=== PATIENT | male | born 1965 | race Caucasian/White ===

== ENCOUNTER 2020-11-09 22:41 | Emergency (ER) | payer OTHER, SELFPAY ==
[2020-11-09 22:42] VITALS: BP 133/72; PULSE 81; RESP 18; TEMP 36.3; O2SAT 99; BMI 27.6
--- NOTE | 2020-11-09 23:09 | RAD_ITS ---
STUDY: X-RAY - RIGHT HAND, ATTENTION THUMB REASON FOR EXAM: Male, 55 years old. Thumb pain after fall downstairs. TECHNIQUE: 3 view(s) of the finger were obtained. COMPARISON: None. FINDINGS: Dorsal dislocation of the distal phalanx at the interphalangeal joint. 1mm avulsion fracture adjacent to the proximal lateral corner of the distal phalanx. No significant soft tissue swelling. Remainder of the study is unremarkable. RAD/Finger(s) Min 2 Views IMPRESSION: Dislocation of the distal phalanx of the thumb, at the interphalangeal joint along with a small avulsion fracture. Electronically Signed: Eb Guzmán MD at 23:31 EST , Service support ,
--- NOTE | 2020-11-09 23:32 | ED.DCSUM_ITS ---
History of Present Illness Chief Complaint: Upper Extremity Injury Informant: Patient Narrative: Patient is a 55-year-old previously healthy male who presents to the emergency department for right thumb injury. He states that he tripped and fell and landed on the thumb. Denies hitting his head or losing consciousness. Denies any other injury. He is right-handed. He is not on any blood thinning medications. He has been drinking alcohol today. Denies any headache or neck pain. No chest pain or shortness of breath. No back pain. No injury to other extremities. He has not tried anything for this. There is a laceration to the palmar aspect of the right thumb. Patient has difficulty bending the thumb at distal joint. Past Medical History - Allergies and Home Meds Allergies/Adverse Reactions: Allergies No Known Allergies Allergy (Verified 11/09/20 22:43) Primary Care Physician: Mahad Garcia MD [STAFF PHYSICIAN] - 3-5 Days NOT,DEFINED [NON-STAFF] - Prior records reviewed: Yes Past Medical History: None Surgical History: noncontributory Smoking Status: Never smoker Review of Systems All systems negative except as indicated General: Denies: Chills, Fever Eyes: Denies: Visual changes - bilaterally, Diplopia ENT: Denies: Rhinorrhea, Sore throat Cardiovascular: Denies: Chest pain, Palpitations Respiratory: Denies: Dyspnea, Cough, Dyspnea on exertion Gastrointestinal: Denies: Abdominal pain, Nausea, Vomiting Genitourinary: Denies: Dysuria, Hematuria, Frequency Musculoskeletal: Reports: Swelling, Extremity Pain. Denies: Neck pain, Back pain Skin: Reports: Wounds. Denies: Rash Neurological: Denies: Headache, Weakness, Numbness Physical Exam Vital Signs/Narrative: Vital Signs Temp Pulse Resp BP Pulse Ox 11/09/20 22:42 97.3 F L 81 18 133/72 H 99 General: Well nourished, Well developed, No Acute Distress Head: Normocephalic, Atraumatic Eyes: Perrl, EOMI ENT: Moist mucous membranes, No rhinorrhea Neck: Supple, Nontender Cardiovascular: Regular rate, Regular rhythm, No murmurs Respiratory: No distress, CTA bilaterally, Chest nontender Abdomen: Soft, Nontender, Nondistended, Normal bowel sounds Back: Nontender, Normal Inspection. Negative for: Spinal tenderness Extremities: No edema, - - Deformity to distal thumb. Capillary refill present. Sensation intact. No range of motion at the distal joint. No tenderness at snuffbox. No other injury or pain noted. 2+ radial pulse. Skin: Normal color, No rash Neurological: Alert, Oriented x3, Cranial nerves II-XII grossly intact, Normal Strength, Normal Sensation Psychological: Normal affect, Normal Mood Diagnostic/Tx/Re-eval Chest X-Ray - ED: - - Finger x-ray interpreted by myself. There is dislocation of the distal phalanx with avulsion fracture. Agree with radiologist interpretation. - Medical Decision Making Patient presents to the emergency department for thumb injury. X-rays were obtained which did show a dislocation of the distal phalanx. Patient informed of the dislocation and fracture. Using a digital block using 6 cc of 1% lidocaine the digit was reduced with traction and countertraction. She did get good range of motion afterwards. Good capillary refill and sensation intact. He does have a laceration that was present but he is refusing suture repair. I did place for Steri-Strips over the wound which did have close approximation. The finger was then splinted. Patient tolerated procedure well without any complications. He was given orthopedic surgery referral for follow- up. Given the fact that there was a laceration with avulsion fracture I did place him on prophylactic antibiotics. He is to monitor for evidence of infection. Return precautions are reviewed. He understands and is agreeable this plan. ED Disposition - Plan for ED Patient: Disposition: Home or Assisted Living Diagnosis: Dislocation of thumb, Thumb laceration, Avulsion fracture of thumb Instructions: ED Finger Dislocation, ED Laceration: All Closures Prescriptions: Cephalexin [Keflex] 500 mg PO Q8 5 Days #15 cap Transmission Status: Pending to [id number] Referrals: NOT,DEFINED [NON-STAFF] - Mahad Garcia MD [STAFF PHYSICIAN] - 3-5 Days
== END 2020-11-10 00:26 | disposition home or self-care (01) ==
PROVIDERS: Emergency Provider Emergency Medicine
DX: S62.521B Displaced fracture of distal phalanx of right thumb, initial encounter for open fracture (principal); W10.9XXA Fall (on) (from) unspecified stairs and steps, initial encounter; Y93.89 Activity, other specified; Y92.89 Other specified places as the place of occurrence of the external cause; Y99.8 Other external cause status
CPT/HCPCS: 26755; 73140; 99282